=== PATIENT | female | born 1995 | race Caucasian/White ===

== ENCOUNTER 2016-03-13 18:31 | Emergency (ER) | payer MEDICAID, OTHER ==
[2016-03-13] MEDS ORDERED: NAPROXEN 250 MG TABLET PO ONE (19:07)
[2016-03-13] MEDS ORDERED: CEPHALEXIN 500 MG CAPSULE PO STA (19:07)
--- NOTE | 2016-03-13 19:08 | Emergency Department Record ---
History of Present Illness - General Chief complaint: General Stated complaint: PAIN AND LUMP IN LEFT BREAST Time Seen by Provider: 03/13/16 19:02 Source: Patient, Family Mode of Arrival: Ambulatory Limitations: No limitations - History of Present Illness Initial comments: 20 yo female presents with a pain area in her left lateral breast. It has been present for a couple weeks. No fever. She is 6 months post . No bloody or pus discharge from the area or nipple. No erythema. No other swollen glands. She is not breast feeding but still produces milk. No other recent or past medical history. PCP is in [place]. complaint: Other (Lump that is painful to the left breast) Location: Chest Severity: Moderate Quality: Aching Consistency: Constant Improves with: None Worsens with: None, Other Context: None Associated symptoms: Denies other symptoms Treatments Prior to Arrival: None - Related Data Previous Rx's Medication Instructions Recorded Cephalexin [Keflex] 500 mg PO TID #21 cap 03/13/16 Naproxen [Naprosyn] 500 mg PO Q12H #25 tab 03/13/16 Allergies Allergy/AdvReac Type Severity Reaction Status Date / Time No Known Drug Allergies Allergy Verified 03/13/16 19:00 Review of Systems Constitutional: Denies: Chills, Fever, Malaise, Weakness Eyes: Denies: Eye discharge ENT: Denies: Congestion, Ear pain, Epistaxis Respiratory: Denies: Cough, Dyspnea, Hemoptysis, Stridor Cardiovascular: Denies: Chest pain Endocrine: Denies: Fatigue Gastrointestinal: Denies: Abdominal pain, Diarrhea, Nausea, Vomiting Genitourinary: Denies: Dysuria, Frequency, Hematuria, Urgency Musculoskeletal: Denies: Arthralgia, Back pain, Myalgia, Neck pain Skin: Denies: Bruising, Change in color, Rash Neurological: Denies: Confusion, Headache Psychiatric: Denies: Anxiety Hematological/Lymphatic: Denies: Blood Clots, Easy bleeding, Easy bruising Past Medical History - SOCIAL HISTORY Smoking Status: Never smoker - RESPIRATORY Hx Respiratory Disorders: Yes Hx Asthma: Yes - CARDIOVASCULAR Hx Cardio Disorders: No - NEURO Hx Neuro Disorders: No - GI Hx GI Disorders: No - Hx Genitourinary Disorders: No - ENDOCRINE Hx Endocrine Disorders: No - MUSCULOSKELETAL Hx Musculoskeletal Disorders: No - PSYCH Hx Psych Problems: No - HEMATOLOGY/ONCOLOGY Hx Hematology/Oncology Disorders: No Family Medical History Hx Diabetes: Grandparents Hx HTN: Mother, Grandparents Physical Exam - General General Appearance: Alert, Oriented x3, Cooperative, No acute distress Limitations: No limitations - Head Head exam: Normal inspection - Eye Eye exam: Normal appearance. negative: Conjunctival injection, Scleral icterus - ENT ENT exam: Normal exam Ear exam: Normal external inspection Nasal Exam: Normal inspection Mouth exam: Normal external inspection Teeth exam: Normal inspection Throat exam: Normal inspection - Neck Neck exam: Normal inspection. negative: Lymphadenopathy - Respiratory Respiratory exam: Normal lung sounds bilaterally. negative: Accessory muscle use, Prolonged expiratory, Respiratory distress, Rhonchi, Stridor, Wheezes - Cardiovascular Cardiovascular Exam: Regular rate, Normal rhythm, Normal heart sounds - GI/Abdominal GI/Abdominal exam: Soft. negative: Tenderness - Rectal Rectal exam: Deferred - exam: Deferred - Extremities Extremities exam: Normal inspection. negative: Pedal edema, Tenderness - Back Back exam: Reports: Normal inspection, Full ROM. Denies: Muscle spasm, Rash noted, Tenderness - Neurological Neurological exam: Alert, Normal gait, Oriented X3, Reflexes normal - Psychiatric Psychiatric exam: Normal affect, Normal mood - Skin Skin exam: Dry, Intact, Normal color, Warm. negative: Erythema Course - Reevaluation(s) Reevaluation #1: Left breast examined in the presence of the nurse Anne LEIVA No erythema or skin changes No nipple DC Far lateral breast with palpable 1cm tender area possible lymph node that is soft and mobile WE discussed the exam, Keflex, Naprosyn and follow up with PCP or OB for a recheck. 03/13/16 19:13 Disposition Disposition: Discharge Clinical Impression: Mastitis Disposition: Home, Self-Care Condition: (1) Good Instructions: Mastitis (ED) Additional Instructions: Take the Keflex and Naprosyn as directed Return if you have fever, pain, redness, drainage or any new concerns Follow up with your family doctor or OB for a recheck in the next week to discuss this ER visit and possible Mammogram if indicated Prescriptions: Cephalexin [Keflex] 500 mg PO TID #21 cap Naproxen [Naprosyn] 500 mg PO Q12H #25 tab.dr Forms: Patient Portal Access Time of Disposition: 19:14
== END 2016-03-13 19:21 | disposition home or self-care (01) ==
LOC: ER 18:31
DX: N61.0 Mastitis without abscess (principal)
CPT/HCPCS: 99282

== ENCOUNTER 2016-03-27 08:29 | Emergency (ER) | payer MEDICAID, OTHER ==
[2016-03-27] MEDS ORDERED: DEXAMETHASONE SOD PHOSPHATE 10MG/ML VIAL PO ONE (08:46)
[2016-03-27] MEDS ORDERED: IBUPROFEN 600 MG TABLET PO ONE (08:46)
--- NOTE | 2016-03-27 08:50 | Emergency Department Record ---
History of Present Illness - General Chief Complaint: Cough Stated Complaint: COUGH/FEVER/NECK AND CHEST HURTS Source: Patient Mode of Arrival: Ambulatory Limitations: No limitations - History of Present Illness Initial Comments: 20 yo female presents not feeling well for 4 days. She has had cough, fever, sore throat, congestion, headache, chest hurts to cough. Tmax 101. No rash. No NVD. She did nemo a flu shot. She is not a smoker and not on control. No abdominal pain or calf pain. No swollen glands. The cough is non productive. MD Complaint: Cough, Fever, Nasal congestion, Sore throat, Other (chest pain) -: Days(s) (4) Severity: Moderate Severity scale (1-10): 4 Quality: Aching Consistency: Constant Improves With: Nothing Worsens With: Other (cough) Context: Sick contacts Associated Symptoms: Cough, Fever, Sore throat - Related Data Previous Rx's Medication Instructions Recorded Naproxen [Naprosyn] 500 mg PO Q12H #25 tab.dr 03/13/16 Azithromycin [Zithromax] 250 mg PO DAILY #4 tab 03/27/16 Hydrocodone/Acetaminophen [[place] 1 tab PO Q8H PRN #6 tab 03/27/16 5mg/325mg] Allergies Allergy/AdvReac Type Severity Reaction Status Date / Time No Known Drug Allergies Allergy Verified 03/27/16 08:42 Review of Systems Constitutional: Reports: Chills, Fever Eyes: Denies: Eye discharge, Eye pain, Photophobia ENT: Reports: Congestion, Throat pain. Denies: Ear pain Respiratory: Reports: Cough, Dyspnea Cardiovascular: Reports: Chest pain (with cough). Denies: Edema, Palpitations, Syncope Endocrine: Reports: Fatigue Gastrointestinal: Denies: Abdominal pain, Diarrhea, Nausea, Vomiting Genitourinary: Denies: Dysuria, Urgency Musculoskeletal: Denies: Arthralgia, Back pain, Joint swelling, Myalgia, Neck pain Skin: Denies: Bruising, Change in color Neurological: Reports: Headache. Denies: Numbness, Tremors, Vertigo, Weakness Psychiatric: Denies: Anxiety Hematological/Lymphatic: Denies: Blood Clots, Easy bleeding, Easy bruising, Swollen glands Past Medical History - SOCIAL HISTORY Smoking Status: Never smoker - RESPIRATORY Hx Respiratory Disorders: Yes Hx Asthma: Yes - CARDIOVASCULAR Hx Cardio Disorders: No - NEURO Hx Neuro Disorders: No - GI Hx GI Disorders: No - Hx Genitourinary Disorders: No - ENDOCRINE Hx Endocrine Disorders: No - MUSCULOSKELETAL Hx Musculoskeletal Disorders: No - PSYCH Hx Psych Problems: No - HEMATOLOGY/ONCOLOGY Hx Hematology/Oncology Disorders: No Family Medical History Hx Diabetes: Grandparents Hx HTN: Mother, Grandparents Physical Exam - General General Appearance: Alert, Oriented x3, Cooperative, No acute distress Limitations: No limitations - Head Head exam: Normal inspection - Eye Eye exam: Normal appearance, PERRL - ENT ENT exam: Normal exam, Mucous membranes moist. negative: Normal orophraynx, TM' s normal bilaterally Ear exam: Normal external inspection. negative: External canal tenderness Nasal Exam: Discharge (clear) Mouth exam: Normal external inspection, Tongue normal Teeth exam: Normal inspection. negative: Dental caries Throat exam: Tonsillar erythema. negative: Tonsillomegaly, Tonsillar exudate, R peritonsillar mass, L peritonsillar mass - Neck Neck exam: Normal inspection, Full ROM, Lymphadenopathy (small anterior cervical ). negative: Meningismus, Tenderness, Thyromegaly - Respiratory Respiratory exam: Normal lung sounds bilaterally, Chest wall tenderness ( sternal tenderness on palpation). negative: Decreased breath sounds, Respiratory distress, Rhonchi, Wheezes - Cardiovascular Cardiovascular Exam: Normal rhythm, Normal heart sounds, Tachycardia. negative : Diastolic murmur, Systolic murmur - GI/Abdominal GI/Abdominal exam: Soft. negative: Distended - Rectal Rectal exam: Deferred - exam: Deferred - Extremities Extremities exam: Normal inspection, Full ROM, Normal capillary refill. negative: Pedal edema, Tenderness - Back Back exam: Reports: Normal inspection, Full ROM. Denies: CVA tenderness (R), CVA tenderness (L), Muscle spasm, Paraspinal tenderness, Rash noted, Tenderness - Neurological Neurological exam: Alert, Normal gait, Oriented X3 - Psychiatric Psychiatric exam: Normal affect, Normal mood - Skin Skin exam: Dry, Intact, Normal color, Warm Course - Reevaluation(s) Reevaluation #1: The strep and influenza are negative 03/27/16 09:24 Reevaluation #2: The CXR was negative for acute process 03/27/16 09:38 Reevaluation #3: Temp 101 Likely infectious cause given the symptoms Will provide Zithromax and Tylenol as well. 03/27/16 09:40 Disposition Disposition: Discharge Clinical Impression: Bronchitis Disposition: Home, Self-Care Condition: (1) Good Instructions: Acute Bronchitis (ED) Additional Instructions: Rest and stay well hydrated Motrin or tylenol for fever or aches. Call your doctor to be seen first of the week Return if worse or any new concerns Prescriptions: Hydrocodone/Acetaminophen [[place] 5mg/325mg] 1 tab PO Q8H PRN #6 tab PRN Reason: Pain - General Azithromycin [Zithromax] 250 mg PO DAILY #4 tab Forms: Patient Portal Access Time of Disposition: 09:39
[2016-03-27 09:04] LABS: STREP A SCREEN NEGATIVE (NEGATIVE)
[2016-03-27 09:14] LABS: INFLUENZA A NEGATIVE (NEGATIVE); INFLUENZA B NEGATIVE (NEGATIVE)
[2016-03-27] MEDS ORDERED: AZITHROMYCIN 500 MG TABLET PO ONE (09:39)
[2016-03-27] MEDS ORDERED: ACETAMINOPHEN 500 MG TABLET PO ONE (09:56)
--- NOTE | 2016-03-31 09:56 | RADIOLOGY REPORT ---
EXAM: CHEST, TWO VIEWS HISTORY: PATIENT HAS COUGH, FEVER, STERNAL CHEST PAIN TIMES FOUR DAYS. TECHNIQUE: Two views of the chest were provided along with the comparison study dated 03/11/07. FINDINGS: The cardiomediastinal silhouette is within normal limits for size and contour. The su appear unremarkable. There is no radiographic evidence of a focal infiltrate or pleural effusion. No pneumothorax is noted. IMPRESSION: NO RADIOGRAPHIC EVIDENCE OF AN ACUTE INTRATHORACIC PROCESS. JOB NUMBER: [id number] [facility]
== END 2016-03-27 10:15 | disposition home or self-care (01) ==
LOC: ER 08:29
DX: J20.9 Acute bronchitis, unspecified (principal)
CPT/HCPCS: 99283 ×2; 87880; 87400; 71020; J1100